=== PATIENT | female | born 2000 | race Caucasian/White ===

== ENCOUNTER 2021-12-21 17:03 | Emergency (ER) | payer OTHER ==
[2021-12-21 17:39] VITALS: BP 129/76; PULSE 70; RESP 20; TEMP 98.4
[2021-12-21 17:57] LABS: Basophils # (A) 0.1 k/uL (0-0.2); Basophils % (A) 1 %; Eosinophils # (A) 0.1 k/uL (0-0.7); Eosinophils % (A) 1 %; HCT 41.9 % (34.0-46.0); HGB 13.4 gm/dL (11.4-16.0); Lymphocytes # (A) 2.2 k/uL (1.0-4.8); Lymphocytes % (A) 25 %; MCH 25.4 pg (25.0-35.0); MCV 79.3 fL (80.0-100.0); Mean Platelet Volume 7.5; Monocytes # (A) 0.4 k/uL (0-1.0); Monocytes % (A) 4 %; Neutrophils # (A) 6.1 k/uL (1.3-7.7); Neutrophils % (A) 69 %; Platelet Count 383 k/uL (150-450); RBC 5.27 m/uL (3.80-5.40); RDW 15.4 % (11.5-15.5); WBC 8.9 k/uL (3.8-10.6)
[2021-12-21 18:02] LABS: ALT 18 U/L (4-34); AST 23 U/L (14-36); African American GFR (CKD) >90 (>60 ml/min/1.73 sqM); Albumin 4.7 g/dL (3.5-5.0); Alkaline Phosphatase 63 U/L (38-126); Anion Gap 10 mmol/L; Blood Urea Nitrogen 14 mg/dL (7-17); Carbon Dioxide 26 mmol/L (22-30); Chloride 103 mmol/L (98-107); Glucose 88 mg/dL (74-99); Non-African American GFR(CKD) >90 (>60 ml/min/1.73 sqM); Potassium 4.4 mmol/L (3.5-5.1); Sodium 139 mmol/L (137-145); Total Bilirubin 0.4 mg/dL (0.2-1.3); Total Protein 7.7 g/dL (6.3-8.2)
[2021-12-21 18:17] LABS: Appearance,Urine Clear (Clear); Bilirubin,Urine Negative (Negative); Blood,Urine Negative (Negative); Color,Urine Colorless; Glucose,Urine (UA) Negative (Negative); Ketones,Urine Negative (Negative); Leukocyte Esterase,Urine Negative (Negative); Nitrite,Urine Negative (Negative); PH, Urine 7.5 (5.0-8.0); Protein,Urine Negative (Negative); Specific Gravity,Urine 1.004 (1.001-1.035); Urobilinogen,Urine <2.0 mg/dL (<2.0)
[2021-12-21] MEDS ORDERED: KETOROLAC 15 MG/ML 1 ML VIAL IVP STA (20:55)
[2021-12-21 21:20] LABS: Basophils # (A) 0.1 k/uL (0-0.2); Basophils % (A) 1 %; Eosinophils # (A) 0.2 k/uL (0-0.7); Eosinophils % (A) 2 %; HCT 40.9 % (34.0-46.0); HGB 13.1 gm/dL (11.4-16.0); Lymphocytes # (A) 3.4 k/uL (1.0-4.8); Lymphocytes % (A) 36 %; MCH 25.4 pg (25.0-35.0); MCV 79.4 fL (80.0-100.0); Mean Platelet Volume 7.5; Monocytes # (A) 0.5 k/uL (0-1.0); Monocytes % (A) 5 %; Neutrophils # (A) 5.4 k/uL (1.3-7.7); Neutrophils % (A) 56 %; Platelet Count 387 k/uL (150-450); RBC 5.15 m/uL (3.80-5.40); RDW 15.6 % (11.5-15.5); WBC 9.6 k/uL (3.8-10.6)
[2021-12-21 21:27] LABS: ALT 17 U/L (4-34); AST 16 U/L (14-36); African American GFR (CKD) >90 (>60 ml/min/1.73 sqM); Albumin 4.4 g/dL (3.5-5.0); Alkaline Phosphatase 57 U/L (38-126); Anion Gap 6 mmol/L; Blood Urea Nitrogen 12 mg/dL (7-17); Calcium 9.8 mg/dL (8.4-10.2); Carbon Dioxide 29 mmol/L (22-30); Chloride 101 mmol/L (98-107); Glucose 77 mg/dL (74-99); Non-African American GFR(CKD) >90 (>60 ml/min/1.73 sqM); Potassium 3.9 mmol/L (3.5-5.1); Sodium 136 mmol/L (137-145); Total Bilirubin 0.4 mg/dL (0.2-1.3); Total Protein 7.1 g/dL (6.3-8.2)
--- NOTE | 2021-12-21 21:42 | ED ---
Female Urogenital HPI - General Chief complaint: Urogenital Stated complaint: Abd/back pain Time Seen by Provider: 12/21/21 20:44 Source: patient Mode of arrival: ambulatory Limitations: no limitations - History of Present Illness Initial comments: Patient is a 20-year-old female presenting with chief complaint of back pain. Patient states that she noticed the pain yesterday, she states it feels a burning pain in her lower back. Patient is concerned for UTI or kidney infection. Patient initially thought it was due to climbing many stairs at [place]. Patient denies any loss of bowel or bladder control or saddle paresthesia. She denies any dysuria, hematuria, urgency, frequency, abdominal pain, chest pain, shortness of breath, fever, chills, nausea, vomiting, weakness, numbness, tingling. - Related Data Allergies Allergy/AdvReac Type Severity Reaction Status Date / Time Penicillins Allergy Unknown Verified 12/21/21 17:39 Review of Systems ROS Statement: Those systems with pertinent positive or pertinent negative responses have been documented in the HPI. ROS Other: All systems not noted in ROS Statement are negative. Past Medical History Additional Past Medical History / Comment(s): kidney infection History of Any Multi-Drug Resistant Organisms: None Reported Past Surgical History: No Surgical Hx Reported Past Psychological History: Anxiety, Depression Smoking Status: Never smoker Past Alcohol Use History: None Reported Past Drug Use History: Methamphetamine General Exam Limitations: no limitations General appearance: alert, in no apparent distress Head exam: Present: atraumatic, normocephalic, normal inspection Eye exam: Present: normal appearance, EOMI. Absent: scleral icterus, periorbital swelling Neck exam: Present: normal inspection Respiratory exam: Present: normal lung sounds bilaterally. Absent: respiratory distress, wheezes, rales, rhonchi, stridor Cardiovascular Exam: Present: regular rate, normal rhythm, normal heart sounds. Absent: systolic murmur, diastolic murmur, rubs, gallop, clicks GI/Abdominal exam: Present: soft. Absent: distended, tenderness, guarding, rebound, rigid Back exam: Present: normal inspection, full ROM, paraspinal tenderness. Absent: CVA tenderness (R), CVA tenderness (L), vertebral tenderness Neurological exam: Present: alert, oriented X3, CN II-XII intact Psychiatric exam: Present: normal affect, normal mood Course Vital Signs 12/21/21 17:35 Temperature 98.4 F Pulse Rate 70 Respiratory 20 Rate Blood Pressure 129/76 O2 Sat by Pulse 100 Oximetry Medical Decision Making - Medical Decision Making Patient is a 20-year-old female presenting with chief complaint of back pain. States that he feels a burning sensation. No red flag symptoms. No dysuria, hematuria, urgency, frequency, fever, chills. On examination there is full range of motion, no CVA tenderness, some paraspinal muscle tenderness. Patient is given Toradol. Lab work is grossly negative, UA shows no signs of infection. On reassessment patient reports great improvement in her pain. Pain is likely musculoskeletal in origin. Patient appears stable for discharge with outpatient follow-up at this time. Follow-up with PCP in one to 2 days. Report back to ER with any new or worsening symptoms. Discussed return parameters and answered all questions. Patient conveyed verbal understanding and agreed to the plan. I discussed this case with my attending Dr. Corrales. - Lab Data Result diagrams: 12/21/21 21:09 12/21/21 21:09 Lab Results 12/21/21 12/21/21 12/21/21 Range/Units 17:30 17:42 17:42 WBC 8.9 (3.8-10.6) k/uL RBC 5.27 (3.80-5.40) m/uL Hgb 13.4 (11.4-16.0) gm/dL Hct 41.9 (34.0-46.0) % MCV 79.3 L (80.0-100.0) fL MCH 25.4 (25.0-35.0) pg MCHC 32.0 (31.0-37.0) g/dL RDW 15.4 (11.5-15.5) % Plt Count 383 (150-450) k/uL MPV 7.5 Neutrophils % 69 % Lymphocytes % 25 % Monocytes % 4 % Eosinophils % 1 % Basophils % 1 % Neutrophils # 6.1 (1.3-7.7) k/uL Lymphocytes # 2.2 (1.0-4.8) k/uL Monocytes # 0.4 (0-1.0) k/uL Eosinophils # 0.1 (0-0.7) k/uL Basophils # 0.1 (0-0.2) k/uL Sodium 139 (137-145) mmol/L Potassium 4.4 (3.5-5.1) mmol/L Chloride 103 (98-107) mmol/L Carbon Dioxide 26 (22-30) mmol/L Anion Gap 10 mmol/L BUN 14 (7-17) mg/dL Creatinine 0.88 (0.52-1.04) mg/dL Est GFR (CKD-EPI)AfAm >90 (>60 ml/min/1.73 sqM) Est GFR (CKD-EPI)NonAf >90 (>60 ml/min/1.73 sqM) Glucose 88 (74-99) mg/dL Plasma Lactic Acid Michel (0.7-2.0) mmol/L Calcium 10.0 (8.4-10.2) mg/dL Total Bilirubin 0.4 (0.2-1.3) mg/dL AST 23 (14-36) U/L ALT 18 (4-34) U/L Alkaline Phosphatase 63 (38-126) U/L Total Protein 7.7 (6.3-8.2) g/dL Albumin 4.7 (3.5-5.0) g/dL Urine Color Colorless Urine Appearance Clear (Clear) Urine pH 7.5 (5.0-8.0) Ur Specific [place] 1.004 (1.001-1.035) Urine Protein Negative (Negative) Urine Glucose (UA) Negative (Negative) Urine Ketones Negative (Negative) Urine Blood Negative (Negative) Urine Nitrite Negative (Negative) Urine Bilirubin Negative (Negative) Urine Urobilinogen <2.0 (<2.0) mg/dL Ur Leukocyte Esterase Negative (Negative) Urine HCG, Qual (Not Detectd) 12/21/21 12/21/21 12/21/21 Range/Units 21:09 21:09 21:09 WBC 9.6 (3.8-10.6) k/uL RBC 5.15 (3.80-5.40) m/uL Hgb 13.1 (11.4-16.0) gm/dL Hct 40.9 (34.0-46.0) % MCV 79.4 L (80.0-100.0) fL MCH 25.4 (25.0-35.0) pg MCHC 32.0 (31.0-37.0) g/dL RDW 15.6 H (11.5-15.5) % Plt Count 387 (150-450) k/uL MPV 7.5 Neutrophils % 56 % Lymphocytes % 36 % Monocytes % 5 % Eosinophils % 2 % Basophils % 1 % Neutrophils # 5.4 (1.3-7.7) k/uL Lymphocytes # 3.4 (1.0-4.8) k/uL Monocytes # 0.5 (0-1.0) k/uL Eosinophils # 0.2 (0-0.7) k/uL Basophils # 0.1 (0-0.2) k/uL Sodium 136 L (137-145) mmol/L Potassium 3.9 (3.5-5.1) mmol/L Chloride 101 (98-107) mmol/L Carbon Dioxide 29 (22-30) mmol/L Anion Gap 6 mmol/L BUN 12 (7-17) mg/dL Creatinine 0.83 (0.52-1.04) mg/dL Est GFR (CKD-EPI)AfAm >90 (>60 ml/min/1.73 sqM) Est GFR (CKD-EPI)NonAf >90 (>60 ml/min/1.73 sqM) Glucose 77 (74-99) mg/dL Plasma Lactic Acid Michel (0.7-2.0) mmol/L Calcium 9.8 (8.4-10.2) mg/dL Total Bilirubin 0.4 (0.2-1.3) mg/dL AST 16 (14-36) U/L ALT 17 (4-34) U/L Alkaline Phosphatase 57 (38-126) U/L Total Protein 7.1 (6.3-8.2) g/dL Albumin 4.4 (3.5-5.0) g/dL Urine Color Urine Appearance (Clear) Urine pH (5.0-8.0) Ur Specific [place] (1.001-1.035) Urine Protein (Negative) Urine Glucose (UA) (Negative) Urine Ketones (Negative) Urine Blood (Negative) Urine Nitrite (Negative) Urine Bilirubin (Negative) Urine Urobilinogen (<2.0) mg/dL Ur Leukocyte Esterase (Negative) Urine HCG, Qual Not Detected (Not Detectd) 12/21/21 Range/Units 21:09 WBC (3.8-10.6) k/uL RBC (3.80-5.40) m/uL Hgb (11.4-16.0) gm/dL Hct (34.0-46.0) % MCV (80.0-100.0) fL MCH (25.0-35.0) pg MCHC (31.0-37.0) g/dL RDW (11.5-15.5) % Plt Count (150-450) k/uL MPV Neutrophils % % Lymphocytes % % Monocytes % % Eosinophils % % Basophils % % Neutrophils # (1.3-7.7) k/uL Lymphocytes # (1.0-4.8) k/uL Monocytes # (0-1.0) k/uL Eosinophils # (0-0.7) k/uL Basophils # (0-0.2) k/uL Sodium (137-145) mmol/L Potassium (3.5-5.1) mmol/L Chloride (98-107) mmol/L Carbon Dioxide (22-30) mmol/L Anion Gap mmol/L BUN (7-17) mg/dL Creatinine (0.52-1.04) mg/dL Est GFR (CKD-EPI)AfAm (>60 ml/min/1.73 sqM) Est GFR (CKD-EPI)NonAf (>60 ml/min/1.73 sqM) Glucose (74-99) mg/dL Plasma Lactic Acid Michel 0.7 (0.7-2.0) mmol/L Calcium (8.4-10.2) mg/dL Total Bilirubin (0.2-1.3) mg/dL AST (14-36) U/L ALT (4-34) U/L Alkaline Phosphatase (38-126) U/L Total Protein (6.3-8.2) g/dL Albumin (3.5-5.0) g/dL Urine Color Urine Appearance (Clear) Urine pH (5.0-8.0) Ur Specific [place] (1.001-1.035) Urine Protein (Negative) Urine Glucose (UA) (Negative) Urine Ketones (Negative) Urine Blood (Negative) Urine Nitrite (Negative) Urine Bilirubin (Negative) Urine Urobilinogen (<2.0) mg/dL Ur Leukocyte Esterase (Negative) Urine HCG, Qual (Not Detectd) Disposition Clinical Impression: Mechanical back pain Disposition: HOME SELF-CARE Condition: Good Instructions (If sedation given, give patient instructions): Acute Low Back Pain (ED), Lower Back Exercises (ED) Additional Instructions: Follow-up with PCP 1-2 days. Report back to ER if any new or worsening symptoms. Take Motrin and Tylenol as needed for pain control. Is patient prescribed a controlled substance at d/c from ED?: No Referrals: Nonstaff,Physician [Primary Care Provider] - 1-2 days Time of Disposition: 21:42
== END 2021-12-21 22:26 | disposition home or self-care (01) ==
LOC: EC 17:03
DX: M54.50 Low back pain, unspecified (principal); F32.A Depression, unspecified; F41.9 Anxiety disorder, unspecified; Z88.0 Allergy status to penicillin; Z79.899 Other long term (current) drug therapy
CPT/HCPCS: 36415; 80053; 83605; 85025; 81003; 81025; 99283; 96374; J1885

== ENCOUNTER 2021-12-22 16:48 | Emergency (ER) | payer OTHER ==
--- NOTE | 2021-12-22 17:49 | XR ---
EXAMINATION TYPE: XR chest 1V DATE OF EXAM: 12/22/2021 COMPARISON: NONE HISTORY: Facial palsy TECHNIQUE: Single view FINDINGS: Heart and mediastinum are normal. Lungs are clear. Diaphragm is normal. Bony thorax is norm al. IMPRESSION: Normal chest.
--- NOTE | 2021-12-22 17:51 | CT ---
EXAMINATION TYPE: CT brain wo con DATE OF EXAM: 12/22/2021 COMPARISON: None HISTORY: Neuro deficits, LT side facial droop CT DLP: 1103.6 mGycm Automated exposure control for dose reduction was used. Ventricles and sulci appear normal. There is no mass effect or midline shift. No sign of intracranial hemorrhage. Calvarium is intact. No evidence of cerebral edema. IMPRESSION: Normal unenhanced head CT scan.
[2021-12-22 17:55] LABS: Glucose,Whole Blood 83 mg/dL (70-110)
[2021-12-22 18:00] LABS: Basophils # (A) 0.1 k/uL (0-0.2); Basophils % (A) 1 %; Eosinophils # (A) 0.2 k/uL (0-0.7); Eosinophils % (A) 3 %; HGB 12.4 gm/dL (11.4-16.0); Lymphocytes # (A) 3.3 k/uL (1.0-4.8); Lymphocytes % (A) 50 %; MCH 25.8 pg (25.0-35.0); MCHC 32.6 g/dL (31.0-37.0); MCV 79.3 fL (80.0-100.0); Mean Platelet Volume 7.3; Monocytes # (A) 0.4 k/uL (0-1.0); Monocytes % (A) 7 %; Neutrophils # (A) 2.4 k/uL (1.3-7.7); Neutrophils % (A) 37 %; Platelet Count 355 k/uL (150-450); RDW 15.5 % (11.5-15.5); WBC 6.5 k/uL (3.8-10.6)
[2021-12-22 18:04] VITALS: TEMP 98.5
--- NOTE | 2021-12-22 18:06 | CT ---
EXAMINATION TYPE: CT angio head neck DATE OF EXAM: 12/22/2021 COMPARISON: None HISTORY: Neuro deficits, LT side facial drooping CT DLP: 386.2 mGycm Automated exposure control for dose reduction was used. CONTRAST: Performed with IV Contrast, patient injected with 65 mL of Isovue 370. Images obtained from the aortic arch to the vertex of the brain with the IV contrast. There are Three -D postprocessed images. There is normal branching pattern of the great vessels of the aortic arch. There is arterial flow in both subclavian arteries. There is arterial flow in the common internal and external carotid arteries bilaterally. There is wide patency of the carotid artery bifurcations. There is arterial flow in bot h vertebral arteries which are fairly symmetric. There is arterial flow in the vertebrobasilar artery system. There is no evidence of carotid or vertebral artery aneurysm or dissection. There is arterial flow in the anterior middle and posterior cerebral arteries. There is no mass effec t. No evidence of intracranial aneurysm or neovascularity. No evidence of hemodynamic stenosis. There is normal contrast opacification of the venous sinuses. IMPRESSION: Normal CT angiogram of the brain. Normal CT angiogram of the neck.
[2021-12-22 18:07] LABS: HCG,Qualitative Serum Not Detected; INR 0.9 (<1.2); Partial Thromboplastin Time 24.4 sec (22.0-30.0); Prothrombin Time 10.4 sec (9.0-12.0)
[2021-12-22 18:08] LABS: African American GFR (CKD) >90 (>60 ml/min/1.73 sqM); Anion Gap 2 mmol/L; Blood Urea Nitrogen 18 mg/dL (7-17); Calcium 8.8 mg/dL (8.4-10.2); Carbon Dioxide 30 mmol/L (22-30); Chloride 102 mmol/L (98-107); Glucose 73 mg/dL (74-99); Non-African American GFR(CKD) 88 (>60 ml/min/1.73 sqM); Potassium 4.7 mmol/L (3.5-5.1); Sodium 134 mmol/L (137-145)
[2021-12-22] MEDS ORDERED: predniSONE 20 MG TAB PO STA (18:39)
[2021-12-22] MEDS ORDERED: ARTIFICIAL TEARS-HYPROMELLOSE DROPS 15 ML BTL LEFT EYE STA (18:40)
[2021-12-22] MEDS ORDERED: valACYclovir HCL 1,000 MG TABLET PO ONE (18:45)
--- NOTE | 2021-12-22 18:45 | ED ---
General Adult HPI - General Chief complaint: Neuro Symptoms/Deficit Stated complaint: bells palsy Time Seen by Provider: 12/22/21 17:10 Source: patient, EMS, RN notes reviewed, old records reviewed Mode of arrival: EMS Limitations: no limitations - History of Present Illness Initial comments: Patient is a 20-year-old female presents from [place] with sudden onset left sided facial droop. It involves the forehead, cheek, lower face. Denies any other weakness, numbness. Denies blurry vision. States she feels weak when trying to close her left eye, as well as wrinkle her left forehead. Was sent here for further evaluation. Sudden onset was at 1545. I evaluated the patient when she was placed in a room. She has a history of meth use but has been clean for 50 days. Recent diagnosis of Covid. No other complaints at this time. Presents for further evaluation at this time. - Related Data Previous Rx's Medication Instructions Recorded Artificial Tears-Hypromellose 1 drops LEFT EYE TID #10 ml 12/22/21 [Artificial Tear Drops] predniSONE [Deltasone] 60 mg PO DAILY #21 tab 12/22/21 valACYclovir HCL [Valacyclovir] 1,000 mg PO TID 7 Days #21 tab 12/22/21 Allergies Allergy/AdvReac Type Severity Reaction Status Date / Time Penicillins Allergy Unknown Verified 12/21/21 17:39 Review of Systems ROS Statement: Those systems with pertinent positive or pertinent negative responses have been documented in the HPI. Review of Systems: CONST: Denies fever EYES: Denies blurry vision ENT: Denies nasal congestion C/V: Denies Chest pain RESP: Denies shortness of breath GI: Denies abdominal pain : Denies dysuria SKIN: Denies rash. MSK: Denies joint pain. NEURO: Endorses left sided facial weakness. ROS Other: All systems not noted in ROS Statement are negative. Past Medical History Additional Past Medical History / Comment(s): kidney infection History of Any Multi-Drug Resistant Organisms: None Reported Past Surgical History: No Surgical Hx Reported Past Psychological History: Anxiety, Depression Smoking Status: Never smoker Past Alcohol Use History: None Reported Past Drug Use History: Methamphetamine General Exam - General Exam Comments Initial Comments: General: Appears in no acute distress. HEAD: Normal with no signs of head trauma. EYES: PERRLA, EOMI, conjunctiva normal, no discharge. Pupils 3 mm and equal bilaterally. ENT: Hearing grossly intact, normal oropharynx. RESPIRATORY: Clear breath sounds bilaterally. No wheezes, rales, or rhonchi. C/V: Regular rate and rhythm. S1 and S2 auscultated, no edema, peripheral pulses 2+ and intact throughout ABD: Abd is soft, nontender, nondistended EXT: Normal range of motion, no obvious deformity SKIN: No rashes or lesions observed on exposed skin. NEURO: Alert and oriented 4. No focal sensory strength deficits. Patient has left-sided facial droop involving the entire left side of the face including the forehead. No other findings. NIH otherwise is 0. Suspect Paul's palsy. Limitations: no limitations Course Vital Signs 12/22/21 12/22/21 16:52 19:05 Temperature 98.5 F Pulse Rate 69 65 Respiratory 16 18 Rate Blood Pressure 120/75 116/84 O2 Sat by Pulse 100 98 Oximetry Medical Decision Making - Medical Decision Making Based on the patient's presentation and physical exam, strong suspicion for Paul's palsy but cannot rule out the possibility of stroke at this time. Did recommend that we obtain CT imaging to rule out stroke. She was in agreement this plan. She has full involvement of left-sided face. We'll obtain basic labs as well as EKG. She was in agreement this plan. CT brain revealed no acute intracranial process. CT angiogram of the head and neck revealed no acute process. Chest x-ray reveals no acute cardiopulmonary process. Laboratory studies were remarkable for a lab glucose is 73 but point of care glucose of 83. No other findings. Printed test negative. EKG shows no acute ischemic process. On reevaluation, symptoms remain unchanged. 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 I updated her that her stroke workup is negative. She'll be discharged home with Paul's palsy medications and she was in agreement this plan. Will be started on prednisone, Valacyclovir, as well as artificial tears here in the department. Will Be sent home with prescriptions for these as well. Discussed proper eye care, including taking the left eye shut if needed. Recommended using the eyedrops to keep it moist. Follow-up with ophthalmology. She expressed understanding. I explained that she should experience some recovery of function of her time. I will provide the patient with a prescription for Valacyclovir 1000mg TID for 7 days, artificial tears, prednisone 60mg daily for 7 days. I instructed the patient to follow up with their PCP in the next 1-3 days. I provided contact inf ormation for follow up with ophthalmology. I explained that the patient should return to the emergency department if they experience any worsening symptoms. Strict return precautions were discussed with the patient. The patient expressed understanding of these instructions. I answered all questions that the patient had. The patient was discharged home in good condition with their prescriptions and follow up information. - Lab Data Result diagrams: 12/22/21 17:46 12/22/21 17:46 Lab Results 12/22/21 12/22/21 12/22/21 Range/Units 17:46 17:46 17:46 WBC 6.5 (3.8-10.6) k/uL RBC 4.80 (3.80-5.40) m/uL Hgb 12.4 (11.4-16.0) gm/dL Hct 38.0 (34.0-46.0) % MCV 79.3 L (80.0-100.0) fL MCH 25.8 (25.0-35.0) pg MCHC 32.6 (31.0-37.0) g/dL RDW 15.5 (11.5-15.5) % Plt Count 355 (150-450) k/uL MPV 7.3 Neutrophils % 37 % Lymphocytes % 50 % Monocytes % 7 % Eosinophils % 3 % Basophils % 1 % Neutrophils # 2.4 (1.3-7.7) k/uL Lymphocytes # 3.3 (1.0-4.8) k/uL Monocytes # 0.4 (0-1.0) k/uL Eosinophils # 0.2 (0-0.7) k/uL Basophils # 0.1 (0-0.2) k/uL PT 10.4 (9.0-12.0) sec INR 0.9 (<1.2) APTT 24.4 (22.0-30.0) sec Sodium 134 L (137-145) mmol/L Potassium 4.7 (3.5-5.1) mmol/L Chloride 102 (98-107) mmol/L Carbon Dioxide 30 (22-30) mmol/L Anion Gap 2 mmol/L BUN 18 H (7-17) mg/dL Creatinine 0.93 (0.52-1.04) mg/dL Est GFR (CKD-EPI)AfAm >90 (>60 ml/min/1.73 sqM) Est GFR (CKD-EPI)NonAf 88 (>60 ml/min/1.73 sqM) Glucose 73 L (74-99) mg/dL POC Glucose (mg/dL) (70-110) mg/dL POC Glu Supply Coordinator ID Calcium 8.8 (8.4-10.2) mg/dL HCG, Qual Not Detected 12/22/21 Range/Units 17:54 WBC (3.8-10.6) k/uL RBC (3.80-5.40) m/uL Hgb (11.4-16.0) gm/dL Hct (34.0-46.0) % MCV (80.0-100.0) fL MCH (25.0-35.0) pg MCHC (31.0-37.0) g/dL RDW (11.5-15.5) % Plt Count (150-450) k/uL MPV Neutrophils % % Lymphocytes % % Monocytes % % Eosinophils % % Basophils % % Neutrophils # (1.3-7.7) k/uL Lymphocytes # (1.0-4.8) k/uL Monocytes # (0-1.0) k/uL Eosinophils # (0-0.7) k/uL Basophils # (0-0.2) k/uL PT (9.0-12.0) sec INR (<1.2) APTT (22.0-30.0) sec Sodium (137-145) mmol/L Potassium (3.5-5.1) mmol/L Chloride (98-107) mmol/L Carbon Dioxide (22-30) mmol/L Anion Gap mmol/L BUN (7-17) mg/dL Creatinine (0.52-1.04) mg/dL Est GFR (CKD-EPI)AfAm (>60 ml/min/1.73 sqM) Est GFR (CKD-EPI)NonAf (>60 ml/min/1.73 sqM) Glucose (74-99) mg/dL POC Glucose (mg/dL) 83 (70-110) mg/dL POC Glu Supply Coordinator ID AristeoshuDesire arias Calcium (8.4-10.2) mg/dL HCG, Qual - EKG Data -: EKG Interpreted by Me EKG Comments: 12-lead Electrocardiogram Interpretation Note EKG was reviewed and interpreted by myself. 12-lead ECG performed at 1802 is interpreted by me as revealing normal sinus rhythm at a rate of 62 beats per minute. [place] is normal. NC interval 166 ms, QRS duration 93 ms, QTc is 399 ms.. There were no ST or T wave abnormalities to suggest myocardial ischemia or injury. R wave progression across the precordium was satisfactory. By my inte rpretation this EKG is non-diagnostic for acute ischemia. Disposition Clinical Impression: Paul's palsy Disposition: HOME SELF-CARE Condition: Good Prescriptions: Artificial Tears-Hypromellose [Artificial Tear Drops] 1 drops LEFT EYE TID #10 ml predniSONE [Deltasone] 60 mg PO DAILY #21 tab valACYclovir HCL [Valacyclovir] 1,000 mg PO TID 7 Days #21 tab Is patient prescribed a controlled substance at d/c from ED?: No Referrals: Matt Dominguez PAC [Primary Care Provider] - 1-2 days Myrna Lara MD [STAFF PHYSICIAN] - 1-2 days Time of Disposition: 18:35
[2021-12-22 19:06] VITALS: BP 116/84; PULSE 65; RESP 18
== END 2021-12-22 19:44 | disposition home or self-care (01) ==
LOC: EC 16:48
DX: G51.0 Bell's palsy (principal); Z88.0 Allergy status to penicillin
CPT/HCPCS: 36415; 93005; 80048; 85025; 85610; 85730; 84703; 71045; 70496; 70450; 70498; 99284; J7512; Q9967

== ENCOUNTER 2021-12-25 10:33 | Emergency (ER) | payer OTHER ==
[2021-12-25] MEDS ORDERED: KETOROLAC 15 MG/ML 1 ML VIAL IM STA (10:44)
[2021-12-25 10:45] VITALS: RESP 18; TEMP 98.4
--- NOTE | 2021-12-25 11:23 | CT ---
EXAMINATION TYPE: CT brain wo con CT DLP: 1051.4 mGycm, Automated exposure control for dose reduction was used. DATE OF EXAM: 12/25/2021 10:55 AM COMPARISON: CT brain 12/22/2021, CTA head 12/22/2021 CLINICAL INDICATION:Female, 21 years old with history of slurred speech, recent bells diagnosis, Lt s ided facial droop, [place] palsy TECHNIQUE: Brain: Multiple axial CT images of the brain were obtained without IV contrast. Coronal and sagittal reformats reviewed. FINDINGS: Brain: Extra-axial spaces: No abnormal extra-axial fluid collections. Ventricular system: Within normal limits Cerebral parenchyma: No acute intraparenchymal hemorrhage or mass effect. The bo-white junction is well differentiated. Cerebellum: Unremarkable. Mass effect: No evidence of midline shift. Intracranial vasculature: unremarkable Soft tissues: Normal. Calvarium/osseous structures: No depressed skull fracture. Paranasal sinuses and mastoid air cells: Clear Visualized orbits: Orbital contents are intact. IMPRESSION: No acute intracranial process. No significant change from prior examination.
--- NOTE | 2021-12-25 12:24 | ED ---
General Adult HPI - General Chief complaint: ENT Stated complaint: facial pain - bells palsy Time Seen by Provider: 12/25/21 10:40 Source: patient Mode of arrival: EMS Limitations: no limitations - History of Present Illness Initial comments: 21-year-old female with past history of methamphetamine use presents emergency room with left facial pain and tingling. She was seen in the emergency department on the fifth for similar complaint and was diagnosed with Paul's palsy. She did have a CT performed which was negative. She was started on valacyclovir, steroids. Has been taking Motrin and Tylenol alternating for pain control. Has been using a lubricant eyedrops as directed. Today she mentioned staff that she felt as if her speech was becoming more slurred and she was having increasing pain in the left side there. Because of her symptoms they recommended transfer to the hospital. Denies any weakness in her extremities. No visual disturbance. No neck pain. No fevers. No head trauma. No history of stroke. Patient was not agreeable to evaluation however [facility] stressed that she should go in for evaluation. She is being discharged from [facility] after 26 days there. - Related Data Previous Rx's Medication Instructions Recorded Artificial Tears-Hypromellose 1 drops LEFT EYE TID #10 ml 12/22/21 [Artificial Tear Drops] predniSONE [Deltasone] 60 mg PO DAILY #21 tab 12/22/21 valACYclovir HCL [Valacyclovir] 1,000 mg PO TID 7 Days #21 tab 12/22/21 Allergies Allergy/AdvReac Type Severity Reaction Status Date / Time Penicillins Allergy Unknown Verified 12/25/21 10:45 Review of Systems ROS Statement: Those systems with pertinent positive or pertinent negative responses have been documented in the HPI. ROS Other: All systems not noted in ROS Statement are negative. Past Medical History Additional Past Medical History / Comment(s): kidney infection, bells palsy 12/2021 History of Any Multi-Drug Resistant Organisms: None Reported Past Surgical History: No Surgical Hx Reported Past Psychological History: Anxiety, Depression Smoking Status: Never smoker Past Alcohol Use History: None Reported Past Drug Use History: Methamphetamine General Exam Limitations: no limitations General appearance: alert, in no apparent distress Head exam: Present: other (left uppe and left lower facial droop) Eye exam: Present: normal appearance, PERRL, EOMI. Absent: scleral icterus, conjunctival injection, periorbital swelling ENT exam: Present: normal exam, mucous membranes moist Neck exam: Present: normal inspection. Absent: tenderness, meningismus, lymphadenopathy Respiratory exam: Present: normal lung sounds bilaterally. Absent: respiratory distress, wheezes, rales, rhonchi, stridor Cardiovascular Exam: Present: regular rate, normal rhythm, normal heart sounds. Absent: systolic murmur, diastolic murmur, rubs, gallop, clicks GI/Abdominal exam: Present: soft, normal bowel sounds. Absent: distended, tenderness, guarding, rebound, rigid Extremities exam: Present: normal inspection, full ROM, normal capillary refill. Absent: tenderness, pedal edema, joint swelling, calf tenderness Back exam: Present: normal inspection Neurological exam: Present: alert, oriented X3, CN II-XII intact Psychiatric exam: Present: normal affect, normal mood Skin exam: Present: warm, dry, intact, normal color. Absent: rash Course Vital Signs 12/25/21 12/25/21 10:35 12:45 Temperature 98.4 F Pulse Rate 73 58 L Respiratory 18 18 Rate Blood Pressure 140/89 131/96 O2 Sat by Pulse 99 98 Oximetry Medical Decision Making - Medical Decision Making Upon arrival patient was placed into room 1. A thorough history and physical exam was performed. She was given a dose of oral for pain control. Repeat CT was performed and she is reporting to worsening speech deficits. CT is read as negative for any acute intracranial abnormality. Patient is satisfied with the current workup and requesting discharge. Mother is on her way from [place]. Patient will be discharged home and instructed to use the eyedrops, prednisone and valacyclovir. Follow up with her primary care doctor to 4 days return for any new or worsening symptoms. Patient agreeable to treatment plan and discharged home in stable condition Disposition Clinical Impression: Paul's palsy, Left facial pain Disposition: HOME SELF-CARE Condition: Stable Instructions (If sedation given, give patient instructions): Paul Palsy (ED) Additional Instructions: Please take the acyclovir and prednisone as directed. Do not take any NSAIDs such as Aleve, Advil or Motrin as this will upset her stomach with the prednisone. Take only Tylenol for pain. Follow-up with your doctor in 2-4 days. Return for any new or worsening symptoms use the eyedrops once every hour and tape her eye closed at night to ensure it stays lubricated. Is patient prescribed a controlled substance at d/c from ED?: No Referrals: Nonstaff,Physician [Primary Care Provider] - 1-2 days Time of Disposition: 12:24
[2021-12-25 12:50] VITALS: BP 131/96; PULSE 58
== END 2021-12-25 12:50 | disposition home or self-care (01) ==
LOC: EC 10:33
DX: G51.0 Bell's palsy (principal); Z88.0 Allergy status to penicillin
CPT/HCPCS: 70450; 99285; 96372; J1885